=== PATIENT | male | born 1965 | race Caucasian/White ===

== ENCOUNTER → 2022-01-18 | Outpatient (CLI) | payer SELFPAY ==
[2022-01-18 16:00] LABS: Troponin-I HS < 3 pg/mL (3.0-78.0)
== END | disposition home or self-care (01) ==
LOC: LABSPEC 15:09
PROVIDERS: PCP Internal Medicine; Referring Provider Internal Medicine; Visit Provider Internal Medicine
DX: R07.9 Chest pain, unspecified (principal)
CPT/HCPCS: 84484

== ENCOUNTER → 2022-01-24 | Outpatient (CLI) | payer OTHER, SELFPAY ==
--- NOTE | 2022-01-24 15:48 | US_ITS ---
STUDY: LIMITED RIGHT UPPER QUADRANT ABDOMINAL ULTRASOUND EXAMINATION OF 1610 HOURS ON 01/24/2022 REASON FOR VISIT: 56-year-old male with epigastric pain. TECHNIQUE: Ultrasound evaluation of the right upper quadrant was performed with real-time and static odell-scale imaging. TECHNICAL QUALITY: Adequate. COMPARISON: None. FINDINGS: Normal-sized liver without solid mass lesions. There are 3 hepatic cysts measuring 1.3 cm, 1.3 cm, and 9 mm. in diameter Normal portal and hepatic venous blood flow. No dilatation of the intrahepatic biliary system or common bile duct, which measures 5 mm in diameter. There is a normal size gallbladder with multiple moderate-sized gallstones and sludge within the gallbladder. There is very minimal gallbladder wall thickening to 3 mm. There is negative Choi''s sign over the gallbladder. There is a normal pancreas without evidence of neoplastic or inflammatory changes. There is a normal right kidney, which measures 10.9 cm in length by 5.1 cm in AP diameter by 4.9 cm in transverse diameter. Cortical thickness is 1.4 cm--normal. There is no evidence of right renal cystic or solid mass lesions. There is no evidence of obstructive uropathy. There is no evidence of inflammatory changes. The abdominal aorta and inferior vena cava were not adequately visualized. There is no evidence of ascites or right pleural fluid. US/Abdomen Limited IMPRESSION: 1. Multiple moderate-sized gallstones and sludge in the gallbladder with minimal gallbladder wall thickening, but a negative Choi''s sign. Cholelithiasis with questionable cholecystitis. 2. Normal liver with 3 small cysts, but no solid mass lesions. 3. No dilatation of intrahepatic biliary system or common bile duct. 4. Normal pancreas. 5. Normal right kidney. 6. Abdominal aorta and inferior cava were not adequately visualized. 7. No ascites or right pleural fluid. Electronically Signed: Jose Wilks MD at 19:12 EDT ,
== END | disposition home or self-care (01) ==
LOC: US 15:47
PROVIDERS: PCP Internal Medicine; Referring Provider Internal Medicine; Visit Provider Internal Medicine
DX: R10.13 Epigastric pain (principal)
CPT/HCPCS: 76705

== ENCOUNTER 2022-02-12 05:55 | Day surgery (SDC) | payer OTHER, SELFPAY ==
--- NOTE | 2022-02-12 | GALL_PTH ---
PATIENT: MIRLANDE ECHOLS LOC: [facility] U#:[id number] AGE/SX: 57/M ROOM: RE02/12/[address]: Dr. Nieves Rachel MD : 1965 BED: DIS: 02/12/2022 SPEC #: [id number] RECD: 02/12/22 10:58 STATUS: TRINA NAOMI #: [id number] SHIVANI: 02/12/22 00:[address]: Nieves Rachel DEPT: SURGICAL PATHOLOGY RECD BY: Ernie Alford ENTERED: 02/12/22 10:58 SP TYPE: AI MALHOTRA DR: Dr. Sharonda Jefferson, Tissues: Gallbladder, NOS Procedures: Surgery Specimen Level III HEADER OPERATION: Laparoscopic cholecystectomy with IOC PRE-OP DIAGNOSIS: Cholelithiasis, acid reflux TISSUE SUBMITTED: Gallbladder MICROSCOPIC DIAGNOSIS Gallbladder, cholecystectomy: Cholesterolosis, chronic cholecystitis and cholelithiasis. AM:iraj 02/13/2022 MICROSCOPIC DESCRIPTION Slides are reviewed. GROSS DESCRIPTION Received is one container labeled with the patient's name and designated gallbladder. The specimen consists of a gallbladder measuring 9 x 3 x 2.5 cm. The external surface is smooth and glistening. Focally, it is granular, hemorrhagic and contains cautery artifact. The lumen of the gallbladder contains yellow-green mucoid bile. The specimen container contains two yellow, mulberry calculi averaging 1.2 cm each. The mucosa is bile-stained and without any mass lesions. The gallbladder wall averages 0.3 cm in thickness and is free of mass lesions. Phone Triage Specialist sections of the gallbladder and the cystic duct at margin of resection are submitted in one cassette. / AM:iraj 02/12/2022 TC:3 CPT: 13053
--- NOTE | 2022-02-12 06:00 | EKG12_ITS ---
Test Reason : PREOP Blood Pressure : / mmHG Vent. Rate : 060 BPM Atrial Rate : 060 BPM P-R Int : 162 ms QRS Dur : 098 ms QT Int : 418 ms P-R-T Axes : 063 062 035 degrees QTc Int : 418 ms Normal sinus rhythm Normal ECG No previous ECGs available Confirmed by ROYA VASQUEZ, GIRISH ([id number]), marketing editor AUDREY LUQUE ([id number]) on 02/20/2022 1:06:30 PM Referred By: Nieevs Rachel Confirmed By:GIRISH PRYOR MD
[2022-02-12 06:47] LABS: Hematocrit 44.9 % (40-54); Hemoglobin 14.7 g/dL (13.0-16.5); Mean Corp Hgb Conc 32.7 g/dL (32-36); Mean Corpuscular Hgb 29.2 pg (27.0-32.0); Mean Corpuscular Volume 89.1 fL (80-94); Mean Platelet Vol. 9.7 fl (6.2-12.0); Platelet Count 230 K/mm3 (150-450); RBC Distribution Width CV 13.4 % (11.6-14.6); RBC Distribution Width SD 43.4 fl (35.1-43.9); Red Blood Count 5.04 M/mm3 (4.6-6.2); White Blood Count 5.7 K/mm3 (4.4-11.0)
[2022-02-12] MEDS: Lactated Ringers 1,000 ML 15 ML IV (06:53)
[2022-02-12 06:55] VITALS: BP 106/84; PULSE 67; RESP 16; TEMP 36.4; O2SAT 99; BMI 30.9
[2022-02-12 07:03] LABS: Anion Gap 4 (5-15); BUN 20 mg/dL (7-18); BUN/Creat Ratio 20.5 RATIO (10-20); Calcium,Total 8.7 mg/dL (8.5-10.1); Chloride 110 mmol/L (98-107); Creatinine, Serum 0.98 mg/dL (0.70-1.30); EST Glomerular Filtration Rate 84 mL/min (>60); Est Glom Filt Rate - Afr Amer 101 mL/min (>60); Estimated Creatinine Clearance 73.24 ml/min; Glucose 96 mg/dL (74-106); Potassium 4.4 mmol/L (3.5-5.1); Sodium Level 138 mmol/L (136-145)
[2022-02-12] MEDS: Bupivacaine 0.25% 30 ML Vial (07:05)
--- NOTE | 2022-02-12 07:08 | PCM.HP.BLA ---
History and Physical Date of Admission: 02/12/22 Date of Service:? 02/06/22 MR#: [id number] Acct: [id number] Name:MIRLANDE BARBER Rep #: [id number] : 1965 ? ? Provider: Dr. Nieves Rachel MD Age/Sex:? 57/M ? ? Location: [facility] Status: Signed Intake Vital Signs ? 02/06/2214:59 Height 5 ft 6 in Weight: 199 lb 2 oz BMI 32.1 BP 118/81 H Blood Pressure Location Rt brachial Position Sitting Respiration 16 Pulse 70 Pulse Source Monitor Temp 97.8 F Temp Source Temporal Pulse Oximetry (%) 99 Oxygen Delivery Method room air Intake Visit Reasons:?GALLBLADDER REMOVAL Chief Complaint: Gallbladder Removal Machine Taper Required: No Is patient in pain?: No Allergies No Known Allergies Allergy (Verified 02/08/22 08:08) Medications aspirin 325 mg tablet 325 mg PO DAILY 04/06/18 [History Confirmed 02/08/22] naproxen sodium 220 mg capsule (Aleve) 440 mg PO BID PRN Pain 02/06/22 [History Confirmed 02/08/22] omeprazole 20 mg capsule,delayed release 40 mg PO DAILY 02/06/22 [History Confirmed 02/08/22] carvedilol 3.125 mg tablet 3.125 mg PO DAILY 02/08/22 [History Confirmed 02/08/22] multivitamin 1 cap PO DAILY 02/08/22 [History Confirmed 02/08/22] PFSH Medical History?(Updated 02/08/22 @ 14:[address] Nieves Rachel MD) Atrial septal defect Back pain Cardiology follow-up encounter Cardiomyopathy Chest pain Gastric reflux History of echocardiogram History of stress test Non-smoker Shortness of breath on exertion Vasovagal near syncope Wears glasses Wears partial dentures Surgical History?(Updated 02/08/22 @ 08:20 by Naima Young) Hx of colonoscopy Family History?(Updated 02/06/22 @ 14:59 by Lauren Friday) Mother?? Hypertension Cancer ?? ? Breast Arthritis Breast cancer DiabetesFather?? Cancer ?? ? Prostate, skinBrother?? CVA (cerebral vascular accident)Sister Gastric ulcer Social History? Smoking Status:? Never smoker alcohol intake:? never substance use type:? does not use HPI HPI HPI: MIRLANDE ECHOLS, is a 57 M who presents to the office today for gallstones in chest and abdominal pain which lasted several hours a couple episodes.? Patient states her same was January 09 happened about 7 PM about an hour after eating cheddar chad Andrewsatz did have nausea and vomiting with that.? Second time was January 24 in the evening after eating hamburger/Sinhala fries patient states since then he has changed his diet and avoiding fatty or greasy foods.? Patient states entire time he was on omeprazole 20 mg p.o. daily did not recently get bumped up to 40 mg p.o. daily patient states that the omeprazole does control his symptoms.? Patient does currently take an aspirin 325 due to a previous possible TIA.? Patient ultrasound showed multiple gallstones also called gallbladder wall at 3 mm, no pericholecystic fluid, normal common bile duct.? Currently patient denies any abdominal pain. ROS General General: No weight change, appetite, fatigue, colon cancer or breast cancer HEENT HEENT: No difficulty swallowing, eye injury, eye surgery, swollen glands or hoarseness Endo Endocrine: No thyroid disease, diabetes mellitus, thyroid cancer, Hair loss, heat intolerance or cold intolerance Skin Skin: No rash or changing moles Musc Musculoskeletal: No back problems, arthritis, rheumatoid arthritis, gout or joint pain Cardio Cardiovascular: No murmur, pacemaker, heart disease, atrial fibrillation, high blood pressure, heart attack, heart stent, palpitations, shortness of breat with exertion or chest pain Psych Psychiatric: No depression, anxiety or hearing voices Resp Respiratory: No shortness of breath, No sleep apnea, No cough, No COPD, No asthma, No emphysema and No wheezing Gastro Gastrointestinal: Yes abdominal pain, Yes nausea or vomiting, No diarrhea, No constipation, No blood in stool, Yes acid reflux, Yes hemorrhoids, No ulcers, Yes gallbladder problem and No black,tarry stools King Hematologic: No blood thinners, No blood disorders, No bleeding, No anemia and No blood clots Neuro Neurologic: No confusion Exam Const General: cooperative, healthy appearing and no acute distress HENMT Head: normal to inspection Resp Effort & Inspection: normal respiratory effort Cardio Rate: regular rate GI Inspection: non-distended Palpation: soft, no guarding, hernia umbilical (< 1cm) and nontender Skin General: no rashes or lesions noted Neuro General: patient oriented x3 Extrem General: no clubbing, cyanosis or edema Psych Affect: normal affect Assessment and Plan Assessment and Plan (1) Cholelithiasis: ?Status:?Acute (2) Acid reflux: ?Status:?Acute Plan Reviewed the anatomy with the patient and discussed the procedure: laparoscopic cholecystectomy with cholangiograms, possible open. Review risks including but not limited to bleeding, infection, hernia, bile leak, retained gallstones requiring another procedure ERCP- Endoscopic Retrograde Cholangiopancreatography, injury to another organ (bile ducts, common bile duct, small bowel, etc.) and conversion to an open procedure. All questions were answered.? Patient no further question this time. Nieves Rachel M.D. Pager: [phone] [facility] [address] [place] [address] [place] [address] Office: [phone] Coding Level of Care Code Off vis,new,level 3 Diagnoses Cholelithiasis? K80.20 Acid reflux? K21.9 02/08/22 8271 <Electronically signed by Nieves Rachel MD> Date Nieves Rachel MD
[2022-02-12] MEDS: Cefotetan 2 GM in 0.9% NS 100 ML IV (07:30)
--- NOTE | 2022-02-12 07:30 | RAD_ITS ---
STUDY: INTRAOPERATIVE CHOLANGIOGRAM. REASON FOR EXAM: Male, 57 years old. LAP ROMAIN WITH IOC -- UNSUCCESSFUL ATTEMPT FOR CHOLANGIOGRAM FLUOROSCOPY TIME (if supplied): ( 4.7 seconds ) minutes/seconds. A cine run of 26 images was submitted. TECHNIQUE: An intraoperative cholangiogram was performed by the surgeon. COMPARISON: None. FINDINGS: Unsuccessful attempt of the cholangiogram. RAD/Cholangiogram/ O R,Initial IMPRESSION: Unsuccessful cholangiogram. Electronically Signed: Morris Guillen MD at 9:55 EDT ,
--- NOTE | 2022-02-12 09:24 | OP.PCM_ITS ---
Report of Operation Date of Procedure: 02/12/22 Pre-Operative Diagnosis: Symptomatic cholelithiasis Post-Operative Diagnosis: Same Surgery/Procedure Performed:: Laparoscopic cholecystectomy Surgeon: Nieves Rachel service desk associate: Brian Marinelli Type of Anesthesia: General/Supplemental Anesthesiologist: Jaskaran Nevarez Special Medications: Cefotetan 2 g IV x1 Specimen's removed: Gallbladder and stones Estimated Blood Loss (mL): 10 cc Fluids Replaced: Per anesthesia Description of Procedure: Indications: this is a 57 year-old male who developed abdominal pain/nausea/vomiting and on workup was found to have cholelithiasis, with a normal common bile duct. Laparoscopic cholecystectomy was elected. Description procedure: The patient was placed on operating table in supine position. A timeout was completed verifying correct patient, procedure, site, position and special equipment prior to beginning procedure. General Anesthesia was induced. The abdomen was prepped and draped in usual sterile fashion. An incision was made in the natural skin line above the umbilicus. The fascia was elevated and incised. The peritoneum was elevated and incised. Entry into the peritoneum was confirmed visually and no bowel was noted in the vicinity of the incision. Sorensen trocar was placed. The abdomen was insufflated with carbon dioxide to a pressure of 12-15 mmHg. Patient tolerated insufflation well. The laparoscope was then inserted and abdomen inspected. No injuries from initial trocar placement were noted. Additional trochars were then inserted in the following locations 5 mm trocar in the epigastrium and 2 more 5 mm trochars along the right costal margin. The abdomen was inspected no abnormalities were found. The table is placed in reverse Trendelenburg position with the right side up. Adhesions between the gallbladder fundus and omentum were able to be retracted. the dome of the gallbladder was grasped with atraumatic grasper passed through the lateral port and retracted over the dome of the liver. Infundibulum was then grasped with atraumatic grasper through the midclavicular port and retracted to the right lower quadrant. There were dense adhesions at the neck of the gallbladder. This maneuver exposed Calot's triangle. The peritoneum overlying the gallbladder infundibulum was then incised and cystic duct and artery identified and circumferentially dissected. Cholangiograms were attempted but unable to be completed. The cystic duct and artery were then doubly clipped and divided close to the gallbladder. The gallbladder then dissected from its peritoneal attachments by electrocautery. Hemostasis was checked and the gallbladder and contained stones were removed using the endoscopic retrieval bag through the umbilical port. The gallbladder is passed off table as specimen. The gallbladder fossa was irrigated with saline and hemostasis obtained. There is no evidence of bleeding from the gallbladder fossa or cystic artery leakage of bile from the cystic duct stump. Secondary trochars removed under direct vision. No bleeding was noted the trocar sites. The laparoscope was withdrawn and umbilical trocar removed. The abdomen was allowed to collapse. The fascia of the 12 mm trocar was closed with a [id number] 0 Vicryl suture. The skin was closed with sutures of 4-0 Monocryl and Steri-Strips. The patient was extubated. The patient tolerated procedure well and was taken to the postanesthesia care unit in stable condition. Complications none
--- NOTE | 2022-02-12 09:27 | DCINST_ITS ---
Discharge Instructions Diet Discharge Diet: Light diet - advance as tolerated Activity Discharge Activity: May Not Drive (while taking narcotic pain medications.) May shower in (days): 1 Lifting Restrictions: no lifting >20 lbs x 2 wks, no strenuous exercise for 4 wks Dressing / Incision Call your doctor if your incision/area has: Continuous Slow Oozing, Sudden Increased Bleeding, Increased Pain/ Swelling, Increased Redness, Foul Smelling Discharge and Swelling at the incision site Call your doctor if you observe: Fever of 101 or Higher Remove Dressing in: 2 days Cleanse incision/area with: Soap & Water Additional Dressing/Incision Instructions:: Steri-Strips will fall off in 7 to 10 days, if they do not fall off okay to remove after 10 days. Follow Up Care Please Follow Up With: Nieves Rachel MD When: Call the office for a follow-up appointment 2 weeks; after 5 PM and on the weekends call [phone] with any concerns. Test Results: Test results from this visit will be discussed in further detail at your follow- up appointment, if applicable. Discharge Plan Admission Attending Provider: Nieves Rachel Primary Care Provider: Sharonda Jefferson Instructions Additional Instructions / Restrictions: Okay to take ibuprofen 400-600 mg PO q6hr PRN along with the Percocet??do not take ibuprofen and Aleve together. Avoid Tylenol since there is already Tylenol in the Percocet. Take all pain meds with food. Percocet can cause constipation recommend taking daily stool softener (i.e. Colace/docusate) while taking the pain meds. Recommend starting some MiraLAX in 1 to 2 days if no bowel movement. If still no bowel movement the following day recommend taking magnesium citrate half the bottle and waiting 4-6 hours if still no results take the other half the bottle. Discharge Orders/Prescriptions Prescriptions: New oxycodone-acetaminophen 5-325 mg tablet 1 tab PO Q6H PRN (Reason: pain) 3 Days Qty: 14 0RF Continued omeprazole 20 mg capsule,delayed release(DR/EC) 40 mg PO DAILY naproxen sodium [Aleve] 220 mg capsule 440 mg PO BID PRN (Reason: Pain) multivitamin Capsule 1 cap PO DAILY carvedilol 3.125 mg tablet 3.125 mg PO DAILY Held aspirin 325 mg tablet 325 mg PO DAILY Hold Instructions: Resume on 02/13/22. Referrals / Follow Up: Sharonda Jefferson DO [Primary Care Provider] - Disposition Disposition (needs filled in before D/C Order can be placed): Home, Self Care
[2022-02-12 09:45] VITALS: BP 106/84; BP 131/88; PULSE 65; RESP 16; TEMP 37; O2SAT 98
[2022-02-12 10:00] VITALS: BP 106/84; BP 131/85; PULSE 51; RESP 16; O2SAT 97
[2022-02-12 10:14] VITALS: BP 106/84; BP 132/91; PULSE 56; RESP 16; TEMP 36.6; O2SAT 100
[2022-02-12] MEDS: Ibuprofen 200 MG Tablet 600 MG PO (10:34)
[2022-02-12 11:03] VITALS: BP 106/84; BP 121/70; PULSE 56; RESP 16; TEMP 36.3; O2SAT 98
== END 2022-02-12 11:30 | disposition home or self-care (01) ==
LOC: SDC 05:56 → AC 05:57
PROVIDERS: Anesthesiology; PCP Internal Medicine; Referring Provider Surgery; Visit Provider Surgery
PROC: (CPT 47610; principal; 2022-02-12 07:10)
DX: K80.10 Calculus of gallbladder with chronic cholecystitis without obstruction (principal); K21.9 Gastro-esophageal reflux disease without esophagitis; Z79.82 Long term (current) use of aspirin; Z79.899 Other long term (current) drug therapy
CPT/HCPCS: 47562; 00790; 74300; 76000; 80048; 85027; 88304; 93005; J7120; J2405